=== PATIENT | male | born 1985 | race Caucasian/White ===

== ENCOUNTER 2019-07-19 06:13 | Emergency (ER) | payer OTHER ==
[~2019-07-19] VITALS: Ht 182.9 cm; Wt 88.5 kg
[2019-07-19 06:15] VITALS: Ht 182.9 cm; Wt 88.5 kg
[2019-07-19 08:28] LABS: BASOPHIL % 0.9 % (0-2); RED CELL DISTRIBUTION WIDTH 12.6 % (11.5-14.5)
[2019-07-19 08:30] LABS: PLATELET COUNT 246 x10^3mcL (130-400)
[2019-07-19 08:41] LABS: CALCIUM 9.3 mg/dL (8.5-10.1); CARBON DIOXIDE 28.5 mmol/L (21-32); CHLORIDE SERUM 105 mmol/L (98-107); CREATININE SERUM 0.8 mg/dL (0.7-1.3); GFR1 > 60 mL/min; GLUCOSE SERUM 107 mg/dL (74-106); POTASSIUM SERUM 3.7 mmol/L (3.5-5.1); SODIUM SERUM 141 mmol/L (136-145)
[2019-07-19 08:47] LABS: ALBUMIN 3.7 g/dL (3.4-5.0); ALKALINE PHOSPHATASE 96 U/L (46-116); ALT/SGPT 125 U/L (16-63); AST/SGOT 79 U/L (15-37); BILIRUBIN TOTAL 0.4 mg/dL (0.20-1.00); HDL CHOLESTEROL 47 mg/dL (40-60); LIPASE 65 IU/L (73-393); TOTAL PROTEIN, SERUM 7.5 g/dL (6.4-8.2)
[2019-07-19 08:50] LABS: CHOLESTEROL 83 mg/dL (<200)
[2019-07-19 08:59] LABS: UA SPECIFIC GRAVITY 1.015 (1.005-1.035); microscopic required? YES; urine erythrocyte TRACE (NEGATIVE)
[2019-07-19 09:00] LABS: AMPHETAMINE QUAL UR POSITIVE (See below)
[2019-07-19 09:04] VITALS: BP 135/81
== END 2019-07-19 08:45 | disposition left against medical advice (07) ==
LOC: ED 06:13
PROVIDERS: Emergency Medicine
DX: J18.1 Lobar pneumonia, unspecified organism (principal); I10 Essential (primary) hypertension; E11.9 Type 2 diabetes mellitus without complications; F17.210 Nicotine dependence, cigarettes, uncomplicated; K02.9 Dental caries, unspecified
CPT/HCPCS: 36415; 82962; 83880; 87804; 99406; Q0092; U0002